=== PATIENT | female | born 1995 | race Caucasian/White ===

== ENCOUNTER 2019-01-09 12:29 | Inpatient (IN) | payer OTHER ==
[2019-01-09 13:36] LABS: BASO % 0.4 % (0-2.0); EOS % 2.6 % (0-4.5); HEMATOCRIT 38.2 % (32.4-45.2); HEMOGLOBIN 12.9 GM/dL (10.7-15.3); LYMPH % 32.4 % (8-40); MCH 30.7 pg (25.7-33.7); MCHC 33.7 g/dl (32.0-36.0); MEAN PLT VOLUME 9.2 fl (7.5-11.1); NEUT % 59.6 % (42.8-82.8); PLATELET COUNT 249 K/MM3 (134-434); RDW 13.9 % (11.6-15.6); WHITE BLOOD COUNT 9.5 K/mm3 (4.0-10.0)
[2019-01-09 13:49] LABS: INR 0.92 (0.83-1.09); PROTHROMBIN TIME (PATIENT) 10.9 SEC (9.7-13.0)
[2019-01-09 13:50] LABS: ANION GAP 8 MMOL/L (8-16); BLOOD UREA NITROGEN 12 mg/dL (7-18); CALCIUM 8.9 mg/dL (8.5-10.1); CHLORIDE 105 mmol/L (98-107); CO2 23 mmol/L (21-32); CREATININE 0.5 mg/dL (0.55-1.3); GLUCOSE,RANDOM 86 mg/dL (74-106); POTASSIUM 3.7 mmol/L (3.5-5.1); SODIUM 136 mmol/L (136-145)
[2019-01-09 13:52] LABS: ACTIVATED PTT 28.9 SECONDS (25.2-36.5)
[2019-01-09 13:57] VITALS: BMI 27.3
[2019-01-09 14:35] LABS: RPR NONREACTIVE (NONREACTIVE)
[2019-01-09] MEDS ORDERED: MISOPROSTOL 100 MCG TABLET PO ONE ×2 (15:10→21:45)
--- NOTE | 2019-01-09 19:21 | HP ---
Past Medical History - Primary Care Physician PCP:: Cayla Bella - Admission Chief Complaint: 23yo @ 37weeks, found to have oligohydramnious by Dr. Yañez on todays US, + FM, no VB, no LOF; presented for IOL @ 12:29pm today History of Present Illness: 1. Short cervix 2. Followed by MFM - Hypoplastic/Pelvic left kidney 3. Oligohydramnious dx today 4. h/o UTI with hematuria during 5. PCN allergic as an infant 6. GBS pos for Clindamycin History Source: Patient, Medical Record - Past Medical History Reproductive: Yes: Other (05/2018 Chlamydia - RINA neg x 2) ...: 1 ...Para: 0 ...LMP: 04/29/18 ... 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 History of Recent Travel: No Home Medications - Allergies Allergies/Adverse Reactions: Allergies Allergy/AdvReac Type Severity Reaction Status Date / Time Penicillins Allergy Verified 01/09/19 13:37 shrimp AdvReac Uncoded 01/09/19 21:10 - Home Medications Home Medications: Ambulatory Orders Pnv No.95/Ferrous Fum/Folic AC [ Vitamin Tablet] 1 each PO DAILY Family Disease History - Family Disease History Family Disease History: CA: Grandparent (breast), Mother (arthritis, breast preCA), Other: Mother Review of Systems - Review of Systems Constitutional: reports: No Symptoms Eyes: reports: No Symptoms HENT: reports: No Symptoms Neck: reports: No Symptoms Cardiovascular: reports: No Symptoms Respiratory: reports: No Symptoms Gastrointestinal: reports: No Symptoms Genitourinary: reports: No Symptoms Breasts: reports: No Symptoms Reported Musculoskeletal: reports: No Symptoms Integumentary: reports: No Symptoms Neurological: reports: No Symptoms Endocrine: reports: No Symptoms Hematology/Lymphatic: reports: No Symptoms Psychiatric: reports: No Symptoms Pain Intensity: 0 Physical Exam - Maternity Vital Signs: Vital Signs Temperature 97.7 F 01/09/19 16:00 Pulse Rate 84 01/09/19 17:00 Respiratory Rate 20 01/09/19 17:00 Blood Pressure 123/66 01/09/19 17:00 O2 Sat by Pulse Oximetry (%) Constitutional: Yes: Well Nourished, No Distress, Calm Eyes: Yes: WNL HENT: Yes: WNL, Atraumatic, Normocephalic Neck: Yes: WNL, Supple, Trachea Midline Cardiovascular: Yes: WNL, Regular Rate and Rhythm Lungs: Clear to auscultation Breast(s): Yes: WNL - Abdominal Exam/OB Fundal Height: 37 Number of Fetuses: Single Presentation: Vertex Contractions: No Monitor Mode: External (140) Heart Rate (range): 140 Heart Rate Location: Midline Category: I Accelerations: Uniform Decelerations: None - Vaginal Exam/OB Vaginal Bleediing: No Dilatation (cm): 1 Effacement (%): 50% Amniotic Membrane Status: Intact Presentation: Vertex/Position Station: -3 - Physical Exam Musculoskeletal: Yes: WNL Extremities: Yes: WNL Edema: No Integumentary: Yes: WNL ...Motor Strength: WNL Psychiatric: Yes: WNL, Alert, Oriented - Labs Lab Results: CBC, BMP 01/09/19 13:05 01/09/19 13:05 Assessment/Plan 23yo P0 @ 37weeks with Oligohydramnious. For Induction of labor. Pt is not in labor. Fetus with Category I tracing. Adequate gynecoid pelvimetry on exam. No contraindications to labor indx or vaginal delivery. We had long discussion re: risks, benefits, and alternatives of labor induction. I explained the options of expectant management awaiting spontaneous labor, induction of labor, and elective section. The risks of uterine tachysystole, distress, uterine rupture, need for emergency C/S, hemorrhage, infection, scarring, etc. were discussed. We also discussed the risks of meconium aspiration, shoulder dystocia, and anesthesia options. The pt was also seen, evaluated, and examined today by Dr. Vidal. The pt requested to proceed with induction. We discussed the alternative methods of induction with Cervidil, Cytotec, Folley ballon, and pitocin. The pt prefers Cytotec followed by pitocin, if needed. The Cytotec was inserted by Dr. Vidal at 15:10pm.
[2019-01-09] MEDS: DEXTROSE 5%-LACTATED RINGERS 1,000 ML IV SCH (19:45)
[2019-01-09] MEDS ORDERED: CLINDAMYCIN 900 MG PREMIX IVPB 900 MG/50 ML BAG IVPB ONE (20:00)
--- NOTE | 2019-01-09 21:20 | PN ---
Progress Note, Labor Vaginal Exam #1 Labor Exam Date: 01/09/19 Labor Exam Time: 19:00 Heart Rate (range): 140 Dilatation: 1-2 Effacement (%): 75% Amniotic Membrane Status: Intact Presentation: Vertex/Position Station: -3 Remarks: Contractions Q 3min, regular will wait till contractions space out to consider 2nd dose of Cytotec for further cervical ripening MF status reassuring
--- NOTE | 2019-01-09 21:49 | PN ---
Progress Note, Labor Vaginal Exam #2 Labor Exam Date: 01/09/19 Labor Exam Time: 21:00 Heart Rate (range): 145 Category 1 Dilatation: 2tight Effacement (%): 75% Amniotic Membrane Status: Intact Presentation: Vertex/Position Station: -3 (bloody show) Remarks: MF status reassuring adequate pelvis Contractions almost gone Patient is comfortable Will repeat bucal Cytotec 25mcg
[2019-01-10] MEDS: DEXTROSE 5%-LACTATED RINGERS 1,000 ML IV SCH ×2 (00:52→17:45)
[2019-01-10] MEDS ORDERED: CLINDAMYCIN 600MG PREMIX IVPB 600 MG/50 ML BAG IVPB SCH (03:00)
[2019-01-10] MEDS ORDERED: OXYTOCIN 30 UNITS in 0.9% NS 30 UNIT/500 ML INFUS.BAG IVPB ONE (03:21)
[2019-01-10] MEDS: OXYTOCIN 30 UNITS in 0.9% NS 30 UNIT/500 ML INFUS.BAG IVPB SCH (03:30)
--- NOTE | 2019-01-10 03:47 | PN ---
Progress Note, Labor Vaginal Exam #3 Labor Exam Date: 01/10/19 Labor Exam Time: 03:00 Heart Rate (range): 140 Category 1 Dilatation: 2 Effacement (%): 50 Amniotic Membrane Status: Intact Presentation: Vertex/Position Station: -3 (Will start Pitocin MFS reasuring)
[2019-01-10] MEDS: CLINDAMYCIN 600MG PREMIX IVPB 600 MG/50 ML BAG IVPB SCH ×3 (05:45→17:55)
[2019-01-10] MEDS ORDERED: BUTORPHANOL TARTRATE 1 MG/ML VIAL ONE ×2 (06:24)
[2019-01-10] MEDS ORDERED: PROMETHAZINE HCL 25 MG/1 ML VIAL ONE (06:25)
[2019-01-10] MEDS ORDERED: BUTORPHANOL TARTRATE 1 MG/ML VIAL IVPB ONE (06:45)
[2019-01-10] MEDS ORDERED: PROMETHAZINE HCL 25 MG/1 ML VIAL IVPB ONE (06:45)
[2019-01-10] MEDS ORDERED: PROMETHAZINE HCL 25 MG/1 ML VIAL IVPUSH ONE (08:15)
[2019-01-10] MEDS ORDERED: BUTORPHANOL TARTRATE 1 MG/ML VIAL IVPUSH ONE (08:15)
[2019-01-10] MEDS ORDERED: TUBERCULIN PPD 5 TU/0.1ML SYRINGE (IN PATIENT USE ONLY) ID ONE (10:00)
--- NOTE | 2019-01-10 17:36 | PN ---
Ante-Partal Exam - Subjective Subjective: Pt feels mild contractions. She was ambulating. Vital Signs: Vital Signs Temperature 98.1 F 01/10/19 16:00 Pulse Rate 71 01/10/19 16:00 Respiratory Rate 20 01/10/19 16:00 Blood Pressure 121/76 01/10/19 16:00 O2 Sat by Pulse Oximetry (%) Bleeding: No Headache: No Visual changes: No Right upper quadrant pain: No Pain (scale 1-10): 4 - Contractions Contractions: Yes Regularity: Irregular Intensity: Mild Monitor Mode: External - Exam during Labor Heart Rate: 140 Variability: Moderate Heart Rate Location: Midline Category: I Monitor Accelerations: Present Monitor Decelerations: None Exam: Vaginal Dilatation (cm): 2 Effacement (%): 80 Amniotic Membrane Status: Ruptured (AROM) Amniotic Fluid: Clear Meconium Staining: Light Presentation: Vertex Station: -2 Remarks: Adequate, gynecoid pelvimetry - Intrapartum Hemorrhage Risk Medium Risk Factors: None High Risk Factors: None Risk Score: 0 Risk Level: Low Risk
[2019-01-10] MEDS ORDERED: CLINDAMYCIN PHOSPHATE 600 MG/4 ML VIAL ONE (17:46)
--- NOTE | 2019-01-10 20:40 | PN ---
Ante-Partal Exam - Subjective Subjective: Pt with painful contractions. She declined any pain meds Vital Signs: Vital Signs Temperature 98.0 F 01/10/19 18:00 Pulse Rate 76 01/10/19 19:00 Respiratory Rate 18 01/10/19 19:00 Blood Pressure 133/78 01/10/19 19:00 O2 Sat by Pulse Oximetry (%) Bleeding: No Headache: No Visual changes: No Right upper quadrant pain: No Pain (scale 1-10): 10 - Contractions Contractions: Yes Regularity: Regular Intensity: Mod/Strong Monitor Mode: External - Exam during Labor Heart Rate: 145 Heart Rate Location: Midline Category: I Monitor Accelerations: Present Monitor Decelerations: None Exam: Vaginal Dilatation (cm): 2 Effacement (%): 90 Amniotic Membrane Status: Leaking Amniotic Fluid: Clear Presentation: Vertex Station: -2 - Intrapartum Hemorrhage Risk Medium Risk Factors: None High Risk Factors: None Risk Score: 0 Risk Level: Low Risk - Assessment/Plan Assessment/Plan: 23yo P0 at EGA 37w1d induced for oligohydramnios. Fetus with Category I tracing. Labor in latent phase. Plan to continue labor induction. pain mgt options reviewed.
[2019-01-11] MEDS: CLINDAMYCIN 600MG PREMIX IVPB 600 MG/50 ML BAG IVPB SCH
[2019-01-11] MEDS ORDERED: CLINDAMYCIN PHOSPHATE 600 MG/4 ML VIAL ONE (00:28)
[2019-01-11] MEDS ORDERED: LIDOCAINE HCL 1% PRESERVATIVE FREE - 30ML VIAL ONE (01:31)
[2019-01-11] MEDS ORDERED: OXYTOCIN 20 UNITS in 0.9% NS 20 UNIT/1,000 ML INFUS.BAG IV ONE (01:31)
[2019-01-11] MEDS: OXYTOCIN 20 UNITS in 0.9% NS 20 UNIT/1,000 ML INFUS.BAG IV SCH (01:50)
[2019-01-11] MEDS ORDERED: METHYLERGONOVINE MALEATE 0.2 MG/1 ML AMP IM PRN (02:09)
[2019-01-11] MEDS ORDERED: WITCH HAZEL 50% (TUCKS) 40 PAD/JAR PAD TP PRN (02:09)
[2019-01-11] MEDS ORDERED: BENZOCAINE 28 GM HEMORRHOIDAL OINTMENT TP PRN (02:09)
[2019-01-11] MEDS ORDERED: BISACODYL 10 MG SUPP.RECT RC PRN (02:09)
[2019-01-11] MEDS ORDERED: BENZOCAINE 20% 57 GM BOTTLE TP PRN (02:09)
[2019-01-11 02:31] LABS: VENOUS PC02 37.4 mmHg (41-51); VENOUS PH 7.37 (7.31-7.41); VENOUS PO2 30.7 mmHg (30-40)
[2019-01-11 02:34] LABS: ARTERIAL BLD GAS O2 SATURATION 34.7 % (95-98); ARTERIAL BLOOD GAS BASE EXCESS -3.3 meq/l (-2-2); ARTERIAL BLOOD GAS PCO2 51.4 mmHg (35-45); ARTERIAL BLOOD GAS pH 7.29 (7.35-7.45)
[2019-01-11 02:51] LABS: ARTERIAL BLOOD GAS PO2 20.5 mmHg (80-105)
[2019-01-11] MEDS: IBUPROFEN 600 MG TABLET (FP) PO PRN ×2 (04:10→17:34)
[2019-01-11] MEDS: ACETAMINOPHEN 325 MG TABLET (FP) PO PRN ×2 (04:10→17:34)
[2019-01-11] MEDS: PRENATAL VITAMINS W/ FOLIC ACID TABLET (FP) PO SCH (09:27)
[2019-01-12 07:27] LABS: BASO % 0.5 % (0-2.0); EOS % 2.8 % (0-4.5); HEMATOCRIT 28.6 % (32.4-45.2); HEMOGLOBIN 9.6 GM/dL (10.7-15.3); LYMPH % 39.6 % (8-40); MCH 30.2 pg (25.7-33.7); MCHC 33.5 g/dl (32.0-36.0); MEAN CELL VOLUME 90.4 fl (80-96); MEAN PLT VOLUME 9.1 fl (7.5-11.1); MONO % 4.7 % (3.8-10.2); NEUT % 52.4 % (42.8-82.8); PLATELET COUNT 237 K/MM3 (134-434); RBC 3.17 M/mm3 (3.60-5.2); RDW 14.4 % (11.6-15.6); WHITE BLOOD COUNT 13.5 K/mm3 (4.0-10.0)
--- NOTE | 2019-01-12 08:10 | PN ---
Post Progress Note - Subjective Subjective: Patient without acute complaints. Reports tolerating oral intake without nausea or vomiting. Ambulating without dizziness. Denies fevers or chills. Pain well controlled with oral pain medication. without difficulty. Passing flatus. Post Day: 1 Type of Delivery: Vital Signs: Vital Signs Temperature 98.3 F 01/11/19 22:00 Pulse Rate 69 01/11/19 22:00 Respiratory Rate 18 01/11/19 22:00 Blood Pressure 128/71 01/11/19 22:00 O2 Sat by Pulse Oximetry (%) Breast Exam: Yes: Soft Uterus: Yes: Fundus Firm, Fundus below umbilicus Abdomen/GI: Yes: Abdomen soft, Passing flatus, Tolerating PO. No: Abdominal Distention, Tender Lochia: Yes: Serosa Lochia, amount: Small Extremities: Yes: Calves non-tender. No: Edema Activity: Ambulating - Labs Labs: CBC WBC 13.5 K/mm3 (4.0-10.0) H 01/12/19 06:30 RBC 3.17 M/mm3 (3.60-5.2) L 01/12/19 06:30 Hgb 9.6 GM/dL (10.7-15.3) L 01/12/19 06:30 Hct 28.6 % (32.4-45.2) L D 01/12/19 06:30 MCV 90.4 fl (80-96) 01/12/19 06:30 MCH 30.2 pg (25.7-33.7) 01/12/19 06:30 MCHC 33.5 g/dl (32.0-36.0) 01/12/19 06:30 RDW 14.4 % (11.6-15.6) 01/12/19 06:30 Plt Count 237 K/MM3 (134-434) 01/12/19 06:30 MPV 9.1 fl (7.5-11.1) 01/12/19 06:30 Absolute Neuts (auto) 7.1 K/mm3 (1.5-8.0) 01/12/19 06:30 Neutrophils % 52.4 % (42.8-82.8) 01/12/19 06:30 Lymphocytes % 39.6 % (8-40) D 01/12/19 06:30 Monocytes % 4.7 % (3.8-10.2) 01/12/19 06:30 Eosinophils % 2.8 % (0-4.5) 01/12/19 06:30 Basophils % 0.5 % (0-2.0) 01/12/19 06:30 Nucleated RBC % 0 % (0-0) 01/12/19 06:30 Assessment/Plan 23 yo PPD # 1 s/p , afebrile, vital signs stable, mild asymptomatic anemia, doing well 1. Continue routine care. 2. AM CBC with mild anemia, asymptomatic. Will start ferrous sulfate. 3. Rh positive status, no rhogam indicated. 4. Encourage ambulation 5. Continue oral pain medication 6. Anticipate discharge home day #2
[2019-01-12] MEDS: PRENATAL VITAMINS W/ FOLIC ACID TABLET (FP) PO SCH (10:01)
[2019-01-12] MEDS: FERROUS SO4 325 MG TABLET (FP) PO SCH ×2 (10:01→17:52)
[2019-01-12] MEDS: CLINDAMYCIN 600MG PREMIX IVPB 600 MG/50 ML BAG IVPB SCH (20:53)
[2019-01-12] MEDS: DEXTROSE 5%-LACTATED RINGERS 1,000 ML IV SCH ×2 (21:22→21:23)
[2019-01-12] MEDS: OXYTOCIN 20 UNITS in 0.9% NS 20 UNIT/1,000 ML INFUS.BAG IV SCH (21:23)
[2019-01-12] MEDS: OXYTOCIN 30 UNITS in 0.9% NS 30 UNIT/500 ML INFUS.BAG IVPB SCH (21:23)
[2019-01-12 21:44] VITALS: TEMP 98.1
[2019-01-12] MEDS ORDERED: SENNOSIDES/DOCUSATE COMBO (SENNA PLUS) TABLET (UD) PO PRN (22:00)
[2019-01-13] MEDS: FERROUS SO4 325 MG TABLET (FP) PO SCH (06:15)
--- NOTE | 2019-01-13 07:45 | DS ---
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 Vital Signs: Vital Signs Temperature 98.1 F 01/12/19 21:29 Pulse Rate 75 01/12/19 21:29 Respiratory Rate 18 01/12/19 21:29 Blood Pressure 125/69 01/12/19 21:29 O2 Sat by Pulse Oximetry (%) 100 01/12/19 21:29 Constitutional: Yes: Well Nourished, No Distress, Calm Eyes: Yes: WNL, Conjunctiva Clear, EOM Intact HENT: Yes: WNL, Atraumatic, Normocephalic Neck: Yes: WNL, Supple, Trachea Midline Cardiovascular: Yes: WNL, Regular Rate and Rhythm Respiratory: Yes: WNL, Regular, CTA Bilaterally Gastrointestinal: Yes: WNL ...Rectal Exam: Yes: WNL Renal/: Yes: WNL ....Post : Yes: Uterus firm, Uterus non-tender, Slight lochia rubra Breast(s): Yes: WNL Musculoskeletal: Yes: WNL Extremities: Yes: WNL Edema: No Integumentary: Yes: WNL Neurological: Yes: WNL, Alert, Oriented ...Motor Strength: WNL Psychiatric: Yes: WNL, Alert, Oriented Labs: CBC, BMP 01/12/19 06:30 01/09/19 13:05 Delivery - Delivery Vaginal Delivery: Spontaneous Type of Anesthesia: None Episiotomy/Laceration: None EBL (cc): 500 Delivery, Single - Stages of Labor Date 1st Stage Initiatied: 01/10/19 Time 1st Stage Initiated: 04:30 Date 2nd Stage Initiated: 01/11/19 Time 2nd Stage Initiated: 01:35 Date of Delivery: 01/11/19 Time of Delivery: 01:44 Time Placenta Delivered: 01:50 Placenta: Yes: Spontaneous - Condition of Pharmaceutical Engineer/Dermatological Surgeon Present: No Gender: Female Weight: 6 lb 2 oz Position: Right, OA Total Hours ROM (Hrs/Mins): [id number] - 1 Minute Total Score: 9 5 Minutes Total Score: 9 - [place] Feeding Plan Initial Plan: Elected not to breastfeed exclusively throughout hospitalization Discharge Summary Reason For Visit: INDUCTION OF LABOR Procedures: Principal: Condition: Good - Instructions Diet, Activity, Other Instructions: regular diet, follow up office 4 weeks, if fever, heavy vaginal bleeding, pain call MD Referrals: Jaime Ennis MD [Staff Physician] - Disposition: HOME - Home Medications Comprehensive Discharge Medication List: Ambulatory Orders Pnv No.95/Ferrous Fum/Folic AC [ Vitamin Tablet] 1 each PO DAILY Ibuprofen [Motrin -] 600 mg PO QID #28 tablet 01/12/19
[2019-01-13] MEDS: PRENATAL VITAMINS W/ FOLIC ACID TABLET (FP) PO SCH (09:20)
[2019-01-13 12:39] VITALS: BP 103/59; PULSE 66
== END 2019-01-13 12:00 | disposition home or self-care (01) | DRG 560 ==
LOC: JLDR 12:29 → J3W 01-11 04:01
PROVIDERS: ADMIT Obstetrics & Gynecology; ATTEND Obstetrics & Gynecology
PROC: 10E0XZZ Delivery of Products of Conception, External Approach (ICD-10-PCS; principal; 2019-01-09)
PROC: 3E0P7VZ Introduction of Hormone into Female Reproductive, Via Natural or Artificial Opening (ICD-10-PCS; 2019-01-09)
PROC: 3E033VJ Introduction of Other Hormone into Peripheral Vein, Percutaneous Approach (ICD-10-PCS; 2019-01-09)
DX: O41.03X0 Oligohydramnios, third trimester, not applicable or unspecified (principal); Q60.3 Renal hypoplasia, unilateral; O26.893 Other specified pregnancy related conditions, third trimester; O99.824 Streptococcus B carrier state complicating childbirth; Z3A.37 37 weeks gestation of pregnancy; Z37.0 Single live birth
CPT/HCPCS: 36415; 36600; 59409; 80048; 82803; 85025; 85610; 85730; 86593; 86850; 86900; 86901; 87389

== ENCOUNTER 2022-01-26 20:00 | Inpatient (IN) | payer OTHER ==
[2022-01-26] MEDS ORDERED: ELECTROLYTE-148 SOLN 1,000 ML IV SCH (21:30)
[2022-01-26 22:24] LABS: BASO % 0.4 % (0-2.0); EOS % 1.6 % (0-4.5); HEMATOCRIT 36.7 % (32.4-45.2); HEMOGLOBIN 12.5 GM/dL (10.7-15.3); LYMPH % 26.7 % (8-40); MCH 29.8 pg (25.7-33.7); MEAN CELL VOLUME 87.5 fl (80-96); MEAN PLT VOLUME 8.2 fl (7.5-11.1); MONO % 5.4 % (3.8-10.2); NEUT % 65.9 % (42.8-82.8); PLATELET COUNT 285 10^3/uL (134-434); RDW 14.2 % (11.6-15.6); WHITE BLOOD COUNT 11.5 K/mm3 (4.0-10.0)
[2022-01-26 22:30] LABS: INR 0.96 (0.83-1.09)
[2022-01-26 22:33] LABS: ACTIVATED PTT 30.1 SECONDS (25.2-36.5)
[2022-01-26 22:44] LABS: CALCIUM 9.5 mg/dL (8.5-10.1)
[2022-01-26 22:45] VITALS: BMI 26.4
[2022-01-26 22:45] LABS: BLOOD UREA NITROGEN 9.7 mg/dL (7-18)
[2022-01-26 22:48] LABS: CREATININE 0.6 mg/dL (0.55-1.3)
[2022-01-26] MEDS ORDERED: ceFAZolin 2 GRAM PREMIX BAG IVPB ONE (23:00)
[2022-01-26] MEDS ORDERED: ceFAZolin SODIUM 1 GM VIAL ONE ×2 (23:12→23:39)
[2022-01-27] MEDS ORDERED: OXYTOCIN 20 UNITS in 0.9% NS 20 UNIT/1,000 ML INFUS.BAG IV ONE (04:07)
[2022-01-27] MEDS ORDERED: WITCH HAZEL 50% (TUCKS) 40 PAD/JAR PAD TP PRN (05:00)
[2022-01-27] MEDS ORDERED: METHYLERGONOVINE MALEATE 0.2 MG/1 ML AMP IM PRN (05:00)
[2022-01-27] MEDS ORDERED: OXYTOCIN 20 UNITS in 0.9% NS 20 UNIT/1,000 ML INFUS.BAG IV SCH (05:00)
[2022-01-27] MEDS ORDERED: BENZOCAINE 28 GM HEMORRHOIDAL OINTMENT TP PRN (05:00)
[2022-01-27] MEDS ORDERED: oxyCODONE HCL 5 MG TABLET PO PRN (05:00)
[2022-01-27] MEDS: ACETAMINOPHEN 325 MG TABLET (FP) PO PRN ×3 (05:00→13:51)
[2022-01-27] MEDS ORDERED: BENZOCAINE 20% 57 GM BOTTLE TP PRN (05:00)
[2022-01-27] MEDS ORDERED: BISACODYL 10 MG SUPP.RECT RC PRN (05:00)
[2022-01-27] MEDS ORDERED: CEFAZOLIN 1 GM/D5W 1 GM/50 ML BAG IVPB SCH (07:00)
[2022-01-27] MEDS: PRENATAL VITAMINS W/ FOLIC ACID TABLET (FP) PO SCH (09:52)
[2022-01-27] MEDS: IBUPROFEN 600 MG TABLET (FP) PO PRN (21:47)
[2022-01-28 09:46] LABS: BASO % 0.5 % (0-2.0); EOS % 2.5 % (0-4.5); HEMATOCRIT 31.1 % (32.4-45.2); HEMOGLOBIN 10.4 GM/dL (10.7-15.3); LYMPH % 33.6 % (8-40); MCH 29.8 pg (25.7-33.7); MCHC 33.6 g/dl (32.0-36.0); MEAN CELL VOLUME 88.7 fl (80-96); MEAN PLT VOLUME 8.6 fl (7.5-11.1); MONO % 5.2 % (3.8-10.2); NEUT % 58.2 % (42.8-82.8); PLATELET COUNT 279 10^3/uL (134-434); RDW 14.2 % (11.6-15.6); WHITE BLOOD COUNT 11.7 K/mm3 (4.0-10.0)
[2022-01-28] MEDS: PRENATAL VITAMINS W/ FOLIC ACID TABLET (FP) PO SCH (09:53)
[2022-01-28] MEDS: ACETAMINOPHEN 325 MG TABLET (FP) PO PRN ×2 (12:23→19:07)
[2022-01-28] MEDS: IBUPROFEN 600 MG TABLET (FP) PO PRN (20:52)
[2022-01-28] MEDS ORDERED: SENNOSIDES/DOCUSATE COMBO (SENNA PLUS) TABLET (UD) PO PRN (22:00)
[2022-01-29] MEDS: PRENATAL VITAMINS W/ FOLIC ACID TABLET (FP) PO SCH (10:29)
[2022-01-29 15:01] VITALS: BP 99/62; PULSE 82; TEMP 98
== END 2022-01-29 14:40 | disposition home or self-care (01) | DRG 560 ==
LOC: JDEL 20:00 → JLDR 21:00 → J3W 01-27 07:44
PROVIDERS: ADMIT Obstetrics & Gynecology; ATTEND Obstetrics & Gynecology
PROC: 10E0XZZ Delivery of Products of Conception, External Approach (ICD-10-PCS; principal; 2022-01-26)
DX: O99.824 Streptococcus B carrier state complicating childbirth (principal); Z3A.37 37 weeks gestation of pregnancy; Z37.0 Single live birth
CPT/HCPCS: 36415; 59409; 80048; 85025; 85610; 85730; 86780; 86850; 86900; 86901; C9803-CS; U0003; U0005